=== PATIENT | female | born 1990 | race Caucasian/White ===

== ENCOUNTER 2024-06-01 06:48 | Outpatient (RCR) | payer OTHER, SELFPAY | END 2024-06-11 09:48 | disposition home or self-care (01) | LOC: RST 06:48 | PROVIDERS: ATTENDING PHYSICIAN Otolaryngology; FAMILY PHYSICIAN Family Medicine | DX: J38.2 Nodules of vocal cords (principal) | CPT/HCPCS: 92507; 92524 ==

== ENCOUNTER → 2024-06-21 07:46 | Outpatient (REF) | payer OTHER, SELFPAY | LOC: MRI 3T 07:46 | PROVIDERS: ATTENDING PHYSICIAN Nurse Practitioner Family; FAMILY PHYSICIAN Family Medicine | DX: G93.2 Benign intracranial hypertension (principal); H93.12 Tinnitus, left ear | CPT/HCPCS: 70544 ==

== ENCOUNTER 2024-07-23 06:13 | Day surgery (SDC) | payer OTHER, SELFPAY ==
[2024-07-23] VITALS (7 sets, daily range): BP systolic 105–119; BP diastolic 63–86; BMI 29.8
[2024-07-23] MEDS: NORMOSOL-R/PLASMALYTE-A 1000 IV (07:50)
== END 2024-07-23 10:34 | disposition home or self-care (01) ==
LOC: SDS 06:13
PROVIDERS: ATTENDING PHYSICIAN Otolaryngology
DX: J38.2 Nodules of vocal cords (principal); K21.9 Gastro-esophageal reflux disease without esophagitis
CPT/HCPCS: 31541; 31536; 88305; 88313